=== PATIENT | male | born 1995 | race Caucasian/White ===

== ENCOUNTER 2024-12-08 15:41 | Emergency (ER) | payer OTHER, SELFPAY ==
[2024-12-08 15:48] VITALS: BP 133/68; PULSE 81; RESP 16; TEMP 37; O2SAT 100
--- NOTE | 2024-12-08 16:07 | ED.MALEGU ---
HPI - Male Genitourinary General Chief complaint: Urogenital-Male Stated complaint: STD Exposure Time Seen by Provider: 12/08/24 16:05 Source: patient, RN notes reviewed and old records reviewed Mode of arrival: ambulatory Limitations: no limitations History of Present Illness HPI Narrative: 29 year old male presents to [facility] care with report of STD exposure to Chlamydia and is here for testing and treatment. Patient reports that he has no symptoms of penis drainage, no burning with urination or any testicle pain or any lesion in perineal area. Patient reports significant other tested positive for Chlamydia. MD Complaint: possible STD exposure Associated symptoms: Reports other (none) Related Data Allergies Allergy/AdvReac Type Severity Reaction Status Date / Time Penicillins Allergy Unknown Anaphylactic Verified 03/10/19 09:56 Shock Review of Systems Review of Systems: CONSTITUTIONAL: Denies fever, chills, or sweats. CARDIOVASCULAR: Denies chest pain, palpitations, or edema. RESPIRATORY: Denies cough or dyspnea. GASTROINTESTINAL: Denies abdominal pain, nausea, vomiting, or diarrhea. GENITOURINARY: Reports no dysuria, frequency, urgency. Denies flank pain or hematuria. Denies any burning or pain with urination or any testicle pain or any penis discharge or testicle pain SKIN: Denies rash or itching. MUSCULOSKELETAL: Denies back pain or myalgia. Denies CVA tenderness NEUROLOGIC: Denies headache All systems reviewed & are unremarkable except as noted in HPI and below PMFSH Past Medical History Medical History (Updated 12/11/24 @ 09:34 by Jeanne Turner NP) Back pain Social History Social History (Updated 12/11/24 @ 09:34 by Jeanne Turner NP) Smoking status: Current every day smoker Tobacco type: cigarettes Alcohol intake: current Alcohol use details: social Substance use type: does not use Living arrangements: with family Gender identity (if verbalized by the patient): Male Comments At time of signature, agree with nursing past medical, surgical, social and family history. There is no relevant family history pertinent to the presenting complaint Exam Narrative: GENERAL: Well-appearing, well-nourished, and in no acute distress.no HEAD: Normocephalic, atraumatic. NECK: Supple.no lymphadenopathy CHEST: Clear to auscultation. No respiratory distress. SAO2 100% on room air HEART: Regular rate and rhythm. No murmur heard. Normal peripheral pulses. ABDOMEN: Soft, nontender, nondistended, normal active bowel sounds. No CVA tenderness. Patient denies any penis drainage or any burning with urination, denies any testicle pain or any perineal lesions EXTREMITIES: Normal range of motion. No edema. SKIN: Warm, dry, no rash. NEURO: No focal deficits. Alert and oriented x3. Course Course Emergency Course: Patient is aware of diagnosis, understands and agrees to treatment plan.? Anticipatory guidance given.? Patient agrees to follow-up as directed and is aware of reasons to seek care at the emergency department. Portions of this record may have been created with voice recognition software Level of Care: Express Care Visit Vital Signs Vital signs: Vital Signs Temperature 37.0 C 12/08/24 15:48 Pulse Rate 81 12/08/24 15:48 Respiratory Rate 16 12/08/24 15:48 Blood Pressure 133/68 12/08/24 15:48 Pulse Oximetry 100 12/08/24 15:48 Oxygen Delivery Room Air 12/08/24 15:48 Temperature 37.0 C 12/08/24 15:48 Pulse Rate 81 12/08/24 15:48 Respiratory Rate 16 12/08/24 15:48 Blood Pressure 133/68 12/08/24 15:48 Pulse Oximetry 100 12/08/24 15:48 Oxygen Delivery Room Air 12/08/24 15:48 MDM - Male Genitourinary MDM Narrative Medical decision making narrative: Patient notified of test results of + chlamydia with other tested STDs negative on 12/09/2024 Differential Diagnosis Differential diagnosis: Likely urethritis and other (exposure to STD, chlamydia exposure) Medical Records Attestation: I reviewed the patient's medical records. Lab Data Attestation: I reviewed the patient's lab results. Lab results narrative: urine for STD sent GC Chlamydia, and Trichomonas Labs: Lab Results 12/08/24 Range/Units 16:15 C. trachomatis (PCR) Detected A (NOT DETECTE) N. gonorrhoeae (PCR) Not detected (NOT DETECTE) T. vaginalis (PCR) Not detected (NOT DETECTE) reviewed Critical Care Time Critical Care Time Critical Care Time: No Discharge Plan Discharge Clinical Impression: Exposure to sexually transmitted disease (STD) Patient Disposition: Home, Self-Care Condition: Stable Instructions: Antibiotic Form, Chlamydia (ED) Additional Instructions: Take all doses of prescribed antibiotic for 1 week duration Must abstain from having intercourse for 2 weeks after completion of antibiotic If he need more comprehensive testing done [facility] If your symptoms persist, change or worsen significantly before you can contact your personal physician then please, without delay, go to the emergency department for further evaluation. Follow-up with PCP in 7-10 days or sooner if needed Follow up with PCP soon in regards to your blood pressure which is elevated above threshold for referral. Blood pressure above 120/80 may indicate pre-hypertension. Blood pressure 133/68 you will be notified of results Patient Language: Maori Prescriptions: New doxycycline hyclate 100 mg tablet 100 mg PO BID Qty: 14 0RF Rx Instructions: take with food Follow-up/Referrals: PHYSICIAN,METAL CLEANER [Primary Care Provider] - Time of Disposition: 16:20 Quality Felt Coma Scale Eyes: Open Verbal: Oriented and Alert Motor: Follows Commands Felt Coma Total Score: 15
--- OUTSIDE RECORDS SUMMARY | 2024-12-08 18:03 | XMS_ITS | Data Portability ---
Author Organization [facility] Address [address] [place] [address] Care Team Providers Care Information Assurance Manager Name Role Phone NAVA, PAULINE Primary Care Provider Assessment No assessment recorded. Plan of Treatment Reminders Order Date Submit Date Provider Last Modified By Organization Details Last Modified Time Details Appointments None recorded . Lab TSH, ultra-se nsitive, serum 2023 024 [facility], [address], [place], [address], 4 10:36:51 CMP, serum or plasma 2023 024 [facility], [address], [place], [address], 4 10:36:49 lipid panel, serum 2023 024 [facility], [address], [place], [address], 4 10:36:48 CBC 2023 024 [facility], [address], [place], [address], 4 10:36:52 Referral None recorded . Procedures None recorded . Surgeries None recorded . Imaging None recorded . Medication Orders Tylenol- Codeine #3 300 mg-30 mg tablet 2019 020 [id number], [address], [place], [place], [id number], 4 14:08:28 Bactrim DS 800 mg-160 mg tablet 2019 020 [id number], [address], [place], [place], [id number], 14:08:27 Patient TargetsNo targets recorded. Patient Instructions Encounter Date Encounter Id Patient Instructions Last Modified By Organization Details Last Modified Time 12/16/2019 [id number] skin abscess: care instructions jnanney Not available 12/16/2019 14:27:27 12/27/2019 [id number] Skin Cyst: Care Instructions jnanney Not available 12/27/2019 17:29:46 02/23/2024 [id number] Learning About Benefits of Quitting Smoking Not available 02/23/2024 14:37:53 stopping smokeless tobacco use: care instructions [facility] Not available 02/23/2024 14:37:53 Increase intake of fresh fruits, and vegetables. Avoid packaged foods and fast foods. Follow a low salt diet, drink at least 8-10 8oz glasses of water a day, exercise most days of the week. Take all medications as prescribed. Keep appointments with PCP and all specialists. Not available 03/01/2024 10:46:47 follow up as needed, yearly to keep established with provider I have reviewed the provider's note and I agree with the documented assessment and plan. HLF [email or web address] Not available 03/01/2024 23:41:20 Reason for Referral None Reported. Results Created Date Observation Date Name Description Value Unit Range Abnormal Flag Note LastModifiedBy Organization Detail LastModifiedTime 02/23/2002/24/2024 LIPID PANEL cholesterol, total 211 mg/dL 100-19 9 above high normal Not Available [facility] ([facility]) [address] [facility] [address], [place], [address], 02/24/2024 10:36:47 02/23/20 24 02/24/2024 LIPID PANEL triglyceride s 37 mg/dL 0-149 Not Available [facility] ([facility]) [address], [place], [address], 02/24/2024 10:36:47 02/23/20 24 02/24/2024 LIPID PANEL HDL cholesterol 102 mg/dL >39 Not Available [facility] ([facility]) [address] [place], [address], 02/24/2024 10:36:47 02/23/20 24 02/24/2024 LIPID PANEL VLDL cholesterol rocio 7 mg/dL 5-40 Not Available [facility] ([facility]) [address] [place], [address], 02/24/2024 10:36:47 02/23/20 24 02/24/2024 LIPID PANEL LDL chol calc ([facility]) 102 mg/dL 0-99 above high normal Not Available [facility] ([facility]) [address] [place], [address], 02/24/2024 10:36:47 02/23/20 24 02/24/2024 COMP. METAB OLIC PANEL (14) glucose 84 mg/dL 70-99 Not Available [facility] ([facility]) [address] [place], [address], 02/24/2024 10:36:49 02/23/20 24 02/24/2024 COMP. METAB OLIC PANEL (14) BUN 12 mg/dL 6-20 Not Available [facility] ([facility]) [address] [place], [address], 02/24/2024 10:36:49 02/23/20 24 02/24/2024 COMP. METAB OLIC PANEL (14) creatinine 0.88 mg/dL 0.76-1 .27 Not Available [facility] ([facility]) [address] [place], [address], 02/24/2024 10:36:49 02/23/20 24 02/24/2024 COMP. METAB OLIC PANEL (14) eGFR 119 mL/mi n/1.7 3 >59 Not Available [facility] ([facility] [facility]) [address], [place], [address], 02/24/2024 10:36:49 02/23/20 24 02/24/2024 COMP. METAB OLIC PANEL (14) BUN/creatini ne ratio 14 9-20 Not Available [facility] ([facility]) [address], [place], [address], 02/24/2024 10:36:49 02/23/20 24 02/24/2024 COMP. METAB OLIC PANEL (14) sodium 142 mmol/ L 134-14 4 Not Available [facility] ([place] [facility]) [address], [place], [address], 02/24/2024 10:36:49 02/23/20 24 02/24/2024 COMP. METAB OLIC PANEL (14) potassium 4.1 mmol/ L 3.5-5. 2 Not Available [facility] ([place] [facility]) [address], [place], [address], 02/24/2024 10:36:49 02/23/20 24 02/24/2024 COMP. METAB OLIC PANEL (14) chloride 103 mmol/ L 96-106 Not Available [facility] ([facility]) [address], [place], [address], 02/24/2024 10:36:49 02/23/20 24 02/24/2024 COMP. METAB OLIC PANEL (14) carbon dioxide, total 26 mmol/ L 20-29 Not Available [facility] ([place] [facility]) [address], [place], [address], 02/24/2024 10:36:49 02/23/20 24 02/24/2024 COMP. METAB OLIC PANEL (14) calcium 9.7 mg/dL 8.7-10 .2 Not Available [facility] ([place] [facility]) [address], [place], [address], 02/24/2024 10:36:49 02/23/20 24 02/24/2024 COMP. METAB OLIC PANEL (14) protein, total 7.1 g/dL 6.0-8. 5 Not Available [facility] ([facility]) [address], [place], [address], 02/24/2024 10:36:49 02/23/20 24 02/24/2024 COMP. METAB OLIC PANEL (14) albumin 5.0 g/dL 4.3-5. 2 Not Available [facility] ([facility]) [address], [place], [address], 02/24/2024 10:36:49 02/23/20 24 02/24/2024 COMP. METAB OLIC PANEL (14) globulin, total 2.1 g/dL 1.5-4. 5 Not Available [facility] ([facility]) [address], [place], [address], 02/24/2024 10:36:49 02/23/20 24 02/24/2024 COMP. METAB OLIC PANEL (14) A/G ratio 2.4 1.2-2. 2 above high normal Not Available [facility] ([facility]) [address], [place], [address], 02/24/2024 10:36:49 02/23/20 24 02/24/2024 COMP. METAB OLIC PANEL (14) bilirubin, total 0.5 mg/dL 0.0-1. 2 Not Available [facility] ([facility]) [address], [place], [address], 02/24/2024 10:36:49 02/23/20 24 02/24/2024 COMP. METAB OLIC PANEL (14) alkaline phosphatase 82 IU/L 44-121 Not Available [facility] ([facility]) [address], [place], [address], 02/24/2024 10:36:49 02/23/20 24 02/24/2024 COMP. METAB OLIC PANEL (14) AST (SGOT) 41 IU/L 0-40 above high normal Not Available [facility] ([facility]) [address] [place], [address], 02/24/2024 10:36:49 02/23/20 24 02/24/2024 COMP. METAB OLIC PANEL (14) ALT (SGPT) 25 IU/L 0-44 Not Available [facility] ([facility]) [address], [place], [address], 02/24/2024 10:36:49 02/23/20 24 02/24/2024 TSH RFX ON ABNOR MAL TO FREE T4 TSH 2.060 uIU/m L 0.450- 4.500 Not Available [facility] ([facility]) [address], [place], [address], 02/24/2024 10:36:50 02/23/20 24 02/24/2024 CBC, PLATE LET, NO DIFFE RENTI AL WBC 7.1 x10e3 /uL 3.4-10 .8 Not Available [facility] ([facility]) [address] [place], [address], 02/24/2024 10:36:52 02/23/20 24 02/24/2024 CBC, PLATE LET, NO DIFFE RENTI AL RBC 4.45 x10e6 /uL 4.14-5 .80 Not Available [facility] ([facility]) [address] [place], [address], 02/24/2024 10:36:52 02/23/20 24 02/24/2024 CBC, PLATE LET, NO DIFFE RENTI AL hemoglobin 13.2 g/dL 13.0-1 7.7 Not Available [facility] ([facility]) [address] [place], [address], 02/24/2024 10:36:52 02/23/20 24 02/24/2024 CBC, PLATE LET, NO DIFFE RENTI AL hematocrit 39.8 % 37.5-5 1.0 Not Available [facility] ([facility]) [address] [place], [address], 02/24/2024 10:36:52 02/23/20 24 02/24/2024 CBC, PLATE LET, NO DIFFE RENTI AL MCV 89 fL 79-97 Not Available [facility] ([facility]) [address] [place], [address], 02/24/2024 10:36:52 02/23/2002/24/2024 CBC, PLATE LET, NO DIFFE RENTI AL MCH 29.7 pg 26.6-3 3.0 Not Available [facility] ([facility]) [address] [place], [address], 02/24/2024 10:36:52 02/23/2002/24/2024 CBC, PLATE LET, NO DIFFE RENTI AL MCHC 33.2 g/dL 31.5-3 5.7 Not Available [facility] ([facility]) [address] [place], [address], 02/24/2024 10:36:52 02/23/20 24 02/24/2024 CBC, PLATE LET, NO DIFFE RENTI AL RDW 12.7 % 11.6-1 5.4 Not Available [facility] ([facility]) [address] [place], [address], 02/24/2024 10:36:52 02/23/2002/24/2024 CBC, PLATE LET, NO DIFFE RENTI AL platelets 236 x10e3 /uL 150-45 0 Not Available [facility] ([facility]) [address] [place], [address], 02/24/2024 10:36:52 Result Notes None recorded. Problems No Known Problems Medical Equipment None Reported. Allergies Allergen ID Allergen Name Allergen Category Reaction Reaction Severity Criticality Documentation Date Start Date Code Code System Note Provider Name and Address Organization Details Recorded Time 672078 Product containin g penicilli n (product) medicatio n Not available Not available Not available 12/16/2019 11675 8001 SNOMED Not Available Not Available Not Available Medications Name Sig Start Date Stop Date Status Note LastModified by Organization Details LastModified Time Tylenol-Codei ne #3 300 mg-30 mg tablet Take 1 tablet every 6 hours by oral route for 10 days. 02/22 completed Not Available Not Available Not Available Bactrim DS 800 mg-160 mg tablet Take 1 tablet every 12 hours by oral route for 10 days. 02/22 completed Not Available Not Available Not Available azithromycin 500 mg tablet TAKE 1 TABLET BY MOUTH EVERY DAY FOR 5 DAYS 02/22 completed Not Available Not Available Not Available Vitals Date Recorded Body weight Body height Body mass index (BMI) Oxygen saturation Oxygen saturation in Arterial blood by Pulse oximetry Heart rate Systolic blood pressure Diastolic blood pressure Provider Name and Address Organization Details Last Updated DateTime 0 34649.8 5 g 177.8 cm 21.7 kg/m2 97 % 97 % 83 /min 126 mm[Hg] 74 mm[Hg] Amara Donaldson [place] - [facility] 0 14:07:52 Date Recorded Body height Body mass index (BMI) Body weight Oxygen saturation Oxygen saturation in Arterial blood by Pulse oximetry Systolic blood pressure Diastolic blood pressure Provider Name and Address Organization Details Last Updated DateTime 0 177.8 cm 14.1 kg/m2 23418.0 5 g 90 % 90 % 130 mm[Hg] 74 mm[Hg] Amara Donaldson MA [place] - [facility] 0 17:00:06 Date Recorded Body height Body mass index (BMI) Body weight Oxygen saturation Oxygen saturation in Arterial blood by Pulse oximetry Heart rate Respiratory rate Body temperature Systolic blood pressure Diastolic blood pressure Provider Name and Address Organization Details Last Updated DateTime 4 177.8 cm 20.7 kg/m2 24218.3 g 99 % 99 % 82 /min 16 /min 98.9 [degF] 120 mm[Hg] 78 mm[Hg] WILDER De León [place] [facility] 14:12:35 Social History Question Answer Notes LastModified by Organization Details LastModified Time Tobacco Smoking Status Former Smoker quit 12/2020 WILDER [place] null, [place] - [facility] 02/23/2024 14:10:05 What Is Your Level Of Alcohol Consumption? Heavy 6 Days Weekly Information not available 02/23/2024 Are You Blind Or Do You Have Difficulty Seeing? No Information not available 02/23/2024 What Is Your Level Of Caffeine Consumption? Moderate Information not available 02/23/2024 In The 14 Days Before Symptom Onset, Have You Had Close Contact With A Laboratory-confi rmed COVID-19 While That Case Was Ill? No Information not available 02/23/2024 In The 14 Days Before Symptom Onset, Have You Had Close Contact With A Person Who Is Under Investigation For COVID-19 While That Person Was Ill? No Information not available 02/23/2024 Have You Been To An Area Known To Be High Risk For COVID-19? No Information not available 02/23/2024 Are You Currently Employed? Yes Information not available 02/23/2024 Are You Deaf Or Do You Have Serious Difficulty Hearing? No Information not available 02/23/2024 What Type Of Diet Are You Following? REGULAR Information not available 02/23/2024 Do You Or Have You Ever Used E-cigarettes Or Vape? Current User Of Electronic Cigarettes Information not available 02/23/2024 What Is Your Occupation? [employer] Information not available 02/23/2024 Are There Any Guns Present In Your Home? No Information not available 02/23/2024 What Was The Date Of Your Most Recent Tobacco Screening? 02/23/2024 Information not available 02/23/2024 How Many Children Do You Have? 2 Information not available 02/23/2024 What Is Your Relationship Status? Single Information not available 02/23/2024 Do You Use Your Seat Belt Or Car Seat Routinely? Yes Information not available 02/23/2024 Do You Have Smoke And Carbon Monoxide Detectors In Your Home? Yes Information not available 02/23/2024 Are You Passively Exposed To Smoke? Yes Information not available 02/23/2024 Do You Or Have You Ever Used Smokeless Tobacco? Never Used Smokeless Tobacco Information not available 02/23/2024 How Much Tobacco Do You Smoke? 1 PPD Information not available 12/16/2019 Do You Feel Stressed (tense, Restless, Nervous, Or Anxious, Or Unable To Sleep At Night)? IC2326-1 Information not available 02/23/2024 Do You Use Any Illicit Or Recreational Drugs? Yes Marijuanna Cocaine Hx Information not available 02/23/2024 Do You Use Sunscreen Routinely? Yes Information not available 02/23/2024 Has Tobacco Cessation Counseling Been Provided? No Information not available 02/23/2024 On What Date Was Tobacco Cessation Counseling Provided? 02/23/2024 Information not available 02/23/2024 How Many Years Have You Smoked Tobacco? 6 Information not available 12/16/2019 Do You Or Have You Ever Used Any Other Forms Of Tobacco Or Nicotine? Yes Information not available 02/23/2024 How Many Years Have You Used E-cigarettes Or Vape? 3 02/23/24 Information not available 02/23/2024 Sex: Male Functional Status Question Answer Note LastModified by Organizat ion Details LastModified Time Are you able to care for yourself? Yes Information not available 02/23/2024 What is your exercise level? Occasional Information not available 02/23/2024 Mental Status None recorded. Family History Relationship Description Onset Age of this Age Resolved Age Notes LastModified by Organization Details LastModified Time Mother Hypertensive disorder [email or web address] Not available 02/2020 14:06:03 Paternal Grandfather Myocardial infarction [email or web address] Not available 14:08:52 Medical History Condition Response Coronary Artery Disease N Other N Atrial Fibrillation N High Blood Pressure N Depression N COPD N Blood Clots N Anxiety Disorder N Muscle, Joint, or Bone Problems N Acid Reflux (GERD) N Cancer N Stroke N Headaches N Kidney or Bladder Problems N Eating Disorder N Skin Problems N Asthma N Allergies N Substance Abuse Y Hepatitis N ADHD N High Cholesterol N Liver Disease N Schizophrenia N Thyroid Problems N GI Problems N Anemia N Heart Attack (ND) N Diabetes N Seizures/Epilepsy N Osteoporosis N Heart Failure N Immunizations Vaccine Type Date Status Note Provider Nam e and Address Organization Details Recorded Time Tdap 01/26/2023 completed Pauline Nava APN, FNP-C Attn: [address] [place], [address], [facility] 02/23/2024 14:16:18 Tdap 03/27/2019 completed Pauline Nava APN, FNP-C Attn: [address] [place], [address], [facility] 02/23/2024 14:16:18 Past Encounters Encounter ID Performer Location Encounter Start Date Encounter Closed Date Diagnosis/Indication Diagnosis SNOMED-CT Code Diagnosis ICD10 Code Diagnosis Note [id number] Azeb Torres MA [facility] [address] [place] [address] 12/16/2019 13:57:28 12/16/2019 15:44:24 Abscess of skin and/or subcutaneous tissue 34794223 L02.91 [id number] [facility] [address] [place] [address] 12/17/2019 11:58:58 12/17/2019 13:48:59 Infection of sebaceous cyst 237484121 L72.3 [id number] Mickey Mandel PA-C [facility] [address] [place] [address] 12/27/2019 16:53:21 12/27/2019 17:32:47 Epidermoid cyst of skin 033694308 L72.3 [id number] MD Quan Tuttle (Adult Med) [address] [place] [address] 02/23/2024 13:51:37 03/04/2024 12:58:51 Adult health examination 044592251 Z00.01 Encouraged patient to eat well balanced meals, live active lifestyle and attend routine vision/den daniel apts. Electronic cigarette user 785618790 Z72.89 Smoking cessation encouraged . Disorder o f nasal septum 53189531 J34.9 concerned it runs more than normal, tried antihistam aristides, did not help, hx of coke use, would like options-víctor p seeing ENT here, will schedule-guillaume alfaroyrtec, astepro Lipoma of back 594232696 D17.1 squishy,1 cm rubbery nodule to upper back, non painfuldwp referral options Health Concerns Section Related Observation LastModified by Organization Detai ls LastModified Time None Recorded Concern Status LastModified by Organization Details LastModified Time None Recorded Advance Directives Directive None Recorded Payers Encounter Date Sequence Insurance Name Policy Number Policy Hutchins Covered Member ID Hutchins Member ID Guarantor Name 12/16/2019 1 [facility] (POS II) Stephen I Stamper [id number] Stephen Stamper 12/17/2019 1 [employer] (POS II) Stephen I Stamper [id number] Stephen Stamper 12/27/2019 1 [employer] (POS II) Stephen I Stamper [id number] Stephen Stamper 02/23/2024 1 [employer] (POS II) Stephen Brandt Stamper [id number] Stephen Stamper Notes Date Note Type Note Provider Name and Address Organization Details Recorded Time 12/16/2019 text/html 24 y/o male presents to establish care. Complains of growth on neck. First occurred about 10 years ago and was small. Started growing in size 1 week ago. Reports associated pain. No association with alcohol ingestion. Father had Hx of similar and was told it was cyst. No fever, nausea, vomiting, fatigue, weight loss, decreased appetite. Azeb Torres MA null, [place] - [facility] 12/17/2019 15:42:26 12/17/2019 text/html sebaceous cyst o n left neck Mickey Mandel PA-C Attn: [address] [facility], [place], [address], [facility] 12/17/2019 16:34:06 12/27/2019 text/html suture removal..healing well Mickey Mandel PA-C Attn: [address] [facility], [place], [address], [facility] 12/27/2019 17:30:26 02/23/2024 text/html last pcp was Eric and only saw him for cyst on chin. possible cyst on back- denies bothersome and moves. Possible deviated septum- states his nostrils done feel like they are open at the same- does have coke hx. quit doing drugs 5 years ago, cannabis started last year recreational use, not daily; blowing his nose often and clear drainage- claritin did not help Susan West MD Attn: [address] [facility], [place], [address], [facility] 03/01/2024 23:41:24
--- OUTSIDE RECORDS SUMMARY | 2024-12-08 18:03 | XMS_ITS | Clinical Summary ---
Author Organization [facility] Address [address] [place] [address] Phone Care Team Providers Care Supervisor Drapery Hanging Name Role Phone Provider, None Primary Care Provider Unavailabl e Allergies Active Allergy Reactions Criticality Noted Date Comments Penicillins Anaphylaxis 04/24/2016 Medications No known medications Immunizations Immunization Administration Dates Next Due TDAP Vaccine 01/26/2023 Social History Tobacco Use Types Packs/Day Years Used Date Smoking Tobacco: Every Day Cigarettes Alcohol Use Standard Drinks/Week Comments Yes 0 (1 standard drink = 0.6 oz pur e alcohol) weekly Sex and Gender Information Value Date Recorded Sex Assigned at Not on file Legal Sex Male 11:55 PM CDT Gender Identity Not on file Sexual Orientation Not on file Last Filed Vital Signs Vital Sign Reading Time Taken Comments Blood Pressure 128/84 01/26/2023 9:10 PM CDT Pulse 80 01/26/2023 9:10 PM CDT Temperature 37 C (98.6 F) 01/26/2023 8:03 PM CDT Respiratory Rate 18 01/26/2023 9:10 PM CDT Oxygen Saturation 99% 01/26/2023 9:10 PM CDT Inhaled Oxygen Concentration - - Weight 68 kg (150 lb) 01/26/2023 8:03 PM CDT Height 177.8 cm (5' 10 ) 01/26/2023 8:03 PM CDT Body Mass Index 21.52 01/26/2023 8:03 PM CDT Plan of Treatment Not on file Insurance [employer] [facility] Care Teams Supervisor Drapery Hanging Relationship Specialty Start Date End Date Provider, None [place] PCP - General 01/26/23
--- OUTSIDE RECORDS SUMMARY | 2024-12-08 18:04 | XMS_ITS | Patient Health Summary ---
Author Organization [facility] Address [address] [place] [address] Care Team Providers Care Business Insight And Analytics Manager Name Role Phone Katlyn Puente MD Primary Care Provider [phone] Note from [facility],non-owned Affiliates and Associated Physician Practices is amultiple site organization consisting of ambulatory clinics and hospital sitesin [place], [place], [place] and [place]. This disclosure is being madepursuant to the Care Everywhere program and may not contain all information available regarding this patient. Last updated 18.[facility] Allergies * Penicillins(Urticaria,Rash) -Low Criticality Medications * Be aware that medications may not be up to date on this document. Alwaysverify current medications with the patient. * diphenhydrAMINE (BENADRYL) 25 MG capsule Take 25 mg by mouth every 4 hours as needed. Indications: took 2 capsule for itching * famotidine (PEPCID) 20 MG tablet(Started 10/23/2010) Take 1 Tab by mouth 2 times daily. 11 refills left Social History Tobacco Use Types Packs/Day Years Used Date Smoking Tobacco: Every Day Cigarettes 3 1 Comments:patient and Mother Alcohol Use Standard Drinks/Week Comments No 0 (1 standard drink = 0.6 oz pur e alcohol) Sex and Gender Information Value Date Recorded Sex Assigned at Not on file Gender Identity Not on file Sexual Orientation Not on file Last Filed Vital Signs Vital Sign Reading Time Taken Comments Blood Pressure 90/64 10/23/2010 3:09 PM SAUSAGE MEAT TRIMMER Pulse 80 06/20/2010 4:50 PM CDT Temperature 36.7 C (98 F) 06/20/2010 4:24 PM CDT Respiratory Rate 20 06/20/2010 4:50 PM CDT Oxygen Saturation 99% 06/20/2010 3:55 PM CDT Inhaled Oxygen Concentration - - Weight 56.5 kg (124 lb 9.6 oz) 10/23/2010 3:09 P M SAUSAGE MEAT TRIMMER Height 173.7 cm (5' 8.39 ) 10/23/2010 3:09 PM CS T Body Mass Index 18.73 10/23/2010 3:09 PM SAUSAGE MEAT TRIMMER Procedures * PATHOLOGY/CYTOLOGY REPORT ORDER(Performed 06/22/2010) * GROSS + MICRO EXAM(Performed 06/20/2010) * HELICOBACTER PYLORI UREASE(Performed 06/20/2010) * CULTURE STREP GROUP A(Performed 06/20/2010) * STREP A SCREEN DIRECT(Performed 06/20/2010) Performed for Rash and Other Nonspecific Skin Eruption * URINALYSIS REFLEX TO MICROSCOPIC NO CULTURE(Performed 05/29/2010) Performed for Abdominal Pain, Unspecified Site * DIFFERENTIAL MANUAL(Performed 05/29/2010) * LIPASE BLOOD(Performed 05/29/2010) Performed for Abdominal Pain, Unspecified Site * COMPREHENSIVE METABOLIC PANEL(Performed 05/29/2010) Performed for Abdominal Pain, Unspecified Site * C-REACTIVE PROTEIN(Performed 05/29/2010) Performed for Abdominal Pain, Unspecified Site * CBC W AUTO DIFFERENTIAL(Performed 05/29/2010) Performed for Abdominal Pain, Unspecified Site Results * PATHOLOGY/CYTOLOGY REPORT ORDER (06/22/2010 8:48 AM CDT) Narrative Procedure Note Document, Scanned - 06/22/2010 4:23 AM CDT Scanned Document LAB - PATHOLOGY/CYTO LOGY ORDERABLES * GROSS + MICRO EXAM (06/20/2010 3:22 PM CDT) [facility] Clinical History [facility] Comment: The patient is a 15-year-old boy with abdominal pain who underwent upper endoscopy. The endoscopic finding was mild esophagitis. Gross Description [facility] Comment: The specimens are received fixed in formalin in three containers for gross and microscopic examination. All containers are labeled with the patient's name, Stephen Cespedes. Specimen A, duodenum, consists of two soft, yellow-ricks tissue fragments, 8 mm and 10 mm in greatest dimension. The specimen is submitted in toto as A1. Specimen B, stomach, consists of three soft, yellow-ricks tissue fragments, 3 mm to 5 mm in greatest dimension. The specimen is submitted in toto as B1. Specimen C, esophagus, consists of four 5 mm soft, lewis-pink tissue fragments, submitted in toto as C1. (CT/nab) Microscopic Examination [facility] Comment: A) 3 H+E; B) 3 H+E; C) 3 H+E Sections from the duodenum show fragments of small intestinal mucosa with long thin villi and the usual prominence of inflammatory cells in the lamina propria. No parasites, granulomas, ischemic features or malignant features are evident. Sections from the stomach show fragments of gastric mucosa with intact architecture and the usual complement of inflammatory cells. No Helicobacter pylori are demonstrated. Sections from the esophagus show strips of stratified squamous mucosa with minimal elongation of vascular papillae and mild basal spongiosis. Occasional eosinophils and lymphocytes are seen in the epithelium (up to 2/high powered field). There is no metaplasia. (MT/nab) Diagnosis [facility] Comment: DIAGNOSIS: A) DUODENUM, MUCOSAL BIOPSY: -MINIMAL HISTOLOGIC ALTERATION. B) STOMACH, MUCOSAL BIOPSY: -MINIMAL HISTOLOGIC ALTERATION. -NO HELICOBACTER PYLORI DEMOSTRATED. C) ESOPHAGUS, MUCOSAL BIOPSY: -SUBACUTE AND CHRONIC ESOPHAGITIS, MILD (CONSISTENT WITH REFLUX ESOPHAGITIS). This case has been personally reviewed and interpreted by the attending (teaching) pathologist. Architectural Engineering Teacher JADYN PAINTING, [facility] Pathologist Yassine solomon M.D. [facility] Electronically Signed By YASSINE Solomon [facility] PART OF DUODENUM / Unknown 06/20/2010 3:22 PM CDT 06/21/2010 7:10 AM CDT Ron Gutierrez MD LAB - PATHOLOGY/CYTO LOGY ORDERABLES Performing Organization Address City/State/[facility] Co de Phone Number [facility] [address] [place] [address] * HELICOBACTER PYLORI UREASE (06/20/2010 3:22 PM CDT) Report [facility] Comment: Final - CULTURE Negative Rapid Urease Test for Helicobacter pylori. GASTRIC ANTRAL BIOPSY SPECIMEN / Unknown 06/20/2010 3:22 PM CDT 06/20/2010 3:39 PM CDT Ron Gutierrez MD LAB - MICROBIOLOGY O RDERABLES Performing Organization Address [facility] Co de Phone Number [facility] [address] [place] [address] * STREP A SCREEN DIRECT (06/20/2010 1:30 PM CDT) Strep A Rapid Negative Neg Grp A Beta Strep [facility] ENTIRE THROAT (SURFACE REGION OF NECK) / Unknown 06/20/2010 1:30 PM CDT 06/20/2010 1:40 PM CDT Ron Gutierrez MD LAB - MICROBIOLOGY O RDERABLES Performing Organization Address [facility] Co de Phone Number [facility] [address] [place] [address] * CULTURE STREP GROUP A (06/20/2010 1:30 PM CDT) Report [facility] Comment: Final - CULTURE Negative for Group A Beta Strep. ENTIRE THROAT (SURFACE REGION OF NECK) / Unknown 06/20/2010 1:30 PM CDT 06/20/2010 2:11 PM CDT Ron Gutierrez MD LAB - MICROBIOLOGY O RDERABLES Performing Organization Address [facility] de Phone Number [facility] [address] [place] [phone] * URINALYSIS ROUTINE AUTO (05/29/2010 3:41 PM CDT) Color UA YELLOW [facility] Character UA CLEAR [facility] Specific [place] UA <=1.005 1.003 - 1.030 [facility] pH UA 7.0 5.0 - 8.0 [facility] Protein UA NEGATIVE Negative [facility] Glucose UA NEGATIVE Negative gm/dl [facility] Ketone UA NEGATIVE Negative [facility] Blood UA NEGATIVE Negative [facility] Bilirubin UA NEGATIVE Negative [facility] Reducing Substances UA NEGATIVE Negative % [facility] Bacteria UA Trace [facility] Leukocyte UA NEGATIVE [facility] Nitrite UA NEGATIVE [facility] Urobilinogen UA 0.2 <=1.0 EU/dl [facility] URINE SPECIMEN OBTAINED BY CLEAN CATCH PROCEDURE / Unknown 05/29/2010 3:41 PM CDT 05/29/2010 3:44 PM CDT Ron Gutierrez MD LAB - URINALYSIS ORD ERABLES Performing Organization Address [facility] Co de Phone Number [facility] [address] [place] [phone] * (ABNORMAL) C-REACTIVE PROTEIN (05/29/2010 3:33 PM CDT) Pathologist [facility] [place] C-Reactive Protein 3.7(H) <1.0 mg/dl mg/dl [facility] BLOOD SPECIMEN / Unknown 05/29/2010 3:33 PM CDT 05/29/2010 3:45 PM CDT Ron Gutierrez MD LAB - CHEMISTRY ORDE RABALVAREZ Performing Organization Address [facility] Co de Phone Number [facility] [address] [place] [phone] * (ABNORMAL) DIFFERENTIAL MANUAL (05/29/2010 3:33 PM CDT) Pathologist [facility] [place] Comment Manual Diff Done [facility] Neutrophils % Manual 72 31 - 78 % [facility] Lymphocytes % Manual 12(L) 13 - 54 % [facility] Monocytes % Manual 8 4 - 13 % [facility] Eosinophils % Manual 5 0 - 8 % [facility] Atypical Lymphocyte % Manual 3 % [facility] RBC Morphology Slight Anisocytosis, Poikylocytosis, Few Ovalocytes [facility] WBC Morph Slight Vacuolation [facility] BLOOD SPECIMEN / Unknown 05/29/2010 3:33 PM CDT 05/29/2010 4:12 PM CDT Ron Gutierrez MD LAB - HEMATOLOGY ORD ERABLES Performing Organization Address [facility] Co de Phone Number [facility] [address] [place] [phone] * CBC W AUTO DIFFERENTIAL (05/29/2010 3:33 PM CDT) Pathologist [facility] [place] WBC 9.98 4.5 - 11.0 K/cumm [facility] RBC 4.70 4.50 - 5.30 mill/cumm [facility] Hemoglobin 13.3 13.0 - 16.0 gm/dl [facility] Hematocrit 37.9 37.0 - 49.0 % [facility] MCV 80.6 78.0 - 98.0 cu microns [facility] MCH 28.3 25.0 - 35.0 uug [facility] MCHC 35.1 31.0 - 37.0 % [facility] RDW 12.8 % [facility] MPV 9.8 fl [facility] Platelet Count 321 100 - 400 K/cumm [facility] Comment Manual Diff Done [facility] BLOOD SPECIMEN / Unknown 05/29/2010 3:33 PM CDT 05/29/2010 3:45 PM CDT Ron Gutierrez MD LAB - HEMATOLOGY ORD ABEBA Performing Organization Address City/[facility] Co de Phone Number [facility] [address] [place] [address] * (ABNORMAL) COMPREHENSIVE METABOLIC PANEL (05/29/2010 3:33 PM CDT) Sodium 144 137 - 145 mmol/L [facility] Potassium 3.7 3.5 - 5.1 mmol/L [facility] Chloride 103 98 - 107 mmol/L [facility] CO2 29.7 22 - 30 mmol/L [facility] Glucose 93 70 - 106 mg/dl [facility] BUN 7.6(L) 8 - 21 mg/dl [facility] Calcium 9.0 8.9 - 10.7 mg/dl [facility] Bilirubin Total 0.3(L) 0.6 - 1.4 mg/dl [facility] Protein Total 7.9 6.3 - 8.6 gm/dl [facility] Albumin 4.4 3.7 - 5.6 gm/dl [facility] ALT 22 10 - 40 Units/L [facility] AST 48(H) 10 - 45 Units/L [facility] Alkaline Phosphatase 121 65 - 260 Units/L [facility] Creatinine 0.73 0.50 - 1.06 mg/dl [facility] BLOOD SPECIMEN / Unknown 05/29/2010 3:33 PM CDT 05/29/2010 3:45 PM CDT Ron Gutierrez MD LAB - CHEMISTRY ORDE JUANY [facility] [address] [place] [address] * LIPASE BLOOD (05/29/2010 3:33 PM CDT) Lipase 57 23 - 300 Units/L [facility] BLOOD SPECIMEN / Unknown 05/29/2010 3:33 PM CDT 05/29/2010 3:45 PM CDT Ron Gutierrez MD LAB - CHEMISTRY OLIVIAE JUANY Performing Organization Address City/[facility] Co de Phone Number [facility] [address] [place] [address] Care Teams Business Insight And Analytics Manager Relationship Specialty Start Date End Date Katlyn Puente MD [address] [place] [address] [phone] PCP - General 05/29/10
--- OUTSIDE RECORDS SUMMARY | 2024-12-08 18:04 | XMS_ITS | Referral Summary ---
Author Organization [facility] Address [address] [place] [address] Care Team Providers Care Computer Customer Support Specialist Name Role Phone Katlyn Puente MD Primary Care Provider [phone] Source Comments [facility],non-owned Affiliates and Associated Physician Practices is amultiple site organization consisting of ambulatory clinics and hospital sitesin [place], [place], [place] and [place]. This disclosure is being madepursuant to the Care Everywhere program and may not contain all information available regarding this patient. Last updated 18.[facility] Allergies Active Allergy Reactions Criticality Noted Date Comments Penicillins Urticaria,Rash Low 05/29/2010 Medications * Be aware that medications may not be up to date on this document. Alwaysverify current medications with the patient. Medication Sig Dispensed Refills Start Date End Date Status diphenhydrAMINE (BENADRYL) 25 MG capsuleIndications:too k 2 capsule for itching Take 25 mg by mouth every 4 hours as needed. Indications: took 2 capsule for itching Active famotidine (PEPCID) 20 MG tabletIndications:Abdo selene pain, unspecified site Take 1 Tab by mouth 2 times daily. 60 Tab 11 10/23/2010 Active Social History Tobacco Use Types Packs/Day Years [...] Comments Blood Pressure 90/64 10/23/2010 3:09 PM SPA DIRECTOR Pulse 80 06/20/2010 4:50 PM CDT Temperature 36.7 C (98 F) 06/20/2010 4:24 PM CDT Respiratory Rate 20 06/20/2010 4:50 PM CDT Oxygen Saturation 99% 06/20/2010 3:55 PM CDT Inhaled Oxygen Concentration - - Weight 56.5 kg (124 lb 9.6 oz) 10/23/2010 3:09 P M SPA DIRECTOR Height 173.7 cm (5' 8.39 ) 10/23/2010 3:09 PM CS T Body Mass Index 18.73 10/23/2010 3:09 PM SPA DIRECTOR Plan of Treatment Not on file Care Teams Computer Customer Support Specialist Relationship Specialty Start Date End Date Katlyn Puente MD [address] [place] [phone] PCP - General 05/29/10
--- OUTSIDE RECORDS SUMMARY | 2024-12-08 18:04 | XMS_ITS | Clinical Summary ---
Author Organization [facility] Address [address] [place] [address] Care Team Providers Care Azure Architect Name Role Phone Katlyn Puente MD Primary Care Provider [phone] Source Comments [facility],non-owned Affiliates and Associated Physician Practices is amultiple site organization consisting of ambulatory clinics and hospital sitesin [place], [place], [place] and [place]. This disclosure is being madepursuant to the Care Everywhere program and may not contain all information available regarding this patient. Last updated 18.[facility] Allergies Active Allergy Reactions Criticality Noted Date [...] times daily. 60 Tab 11 10/23/2010 Active Family History Medical History Relation Name Comments Anesthesia Reaction Mother severes po nausea and vomiting Anesthesia Reaction Paternal Grandmother PONV Relation Name Status Comments Brother Alive Mother Alive Other Dad Alive Paternal Grandmother Social History Tobacco Use Types Packs/Day Years [...] Comments Blood Pressure 90/64 10/23/2010 3:09 PM BIOINFORMATICS TECHNICIAN Pulse 80 06/20/2010 4:50 PM CDT Temperature 36.7 C (98 F) 06/20/2010 4:24 PM CDT Respiratory Rate 20 06/20/2010 4:50 PM CDT Oxygen Saturation 99% 06/20/2010 3:55 PM CDT Inhaled Oxygen Concentration - - Weight 56.5 kg (124 lb 9.6 oz) 10/23/2010 3:09 P M BIOINFORMATICS TECHNICIAN Height 173.7 cm (5' 8.39 ) 10/23/2010 3:09 PM CS T Body Mass Index 18.73 10/23/2010 3:09 PM BIOINFORMATICS TECHNICIAN Plan of Treatment Health Maintenance Due Date Last Done Comments HIV SCREENING 2008 HEPATITIS C SCREENING 04/08/2011 DTAP/TDAP/TD VACCINES (1 - Tdap) 2012 HEPATITIS B VACCINE (1 of 3 - 19+ 3-dose series) 2012 PNEUMOCOCCAL VACCINE (1 of 2 - PCV) 2012 COVID-19 VACCINE (1 - 2023-2 5 season) 2024 INFLUENZA VACCINE (#1) 2024 DEPRESSION SCREENING 10/13/2024 ZOSTER VACCINE (1 of 2) 2043 HIB VACCINE Aged Out No longer eligi ble based on patient's age to complete this topic HPV VACCINE Aged Out No longer eligi ble based on patient's age to complete this topic MENINGOCOCCAL (Group B) VACCINE Aged Out No longer eligible based on patient's age to complete this topic MENINGOCOCCAL VACCINE Aged Out No blade yovany eligible based on patient's age to complete this topic Care Teams Azure Architect Relationship Specialty Start Date End Date Katlyn Puente MD [address] [place] [address] Dr [address] [place] [phone] PCP - General 05/29/10
[2024-12-08 21:04] LABS: Trichomonas Vag PCR NOT DETECTED (NOT DETECTE)
[2024-12-08 21:27] LABS: Chlamydia trachomatis DETECTED (NOT DETECTE); Neisseria gonorrhoeae PCR NOT DETECTED (NOT DETECTE)
== END 2024-12-08 16:24 | disposition home or self-care (01) ==
PROVIDERS: Emergency Provider Registered Nurse
DX: Z20.2 Contact with and (suspected) exposure to infections with a predominantly sexual mode of transmission (principal); F17.210 Nicotine dependence, cigarettes, uncomplicated
CPT/HCPCS: 87491; 87591; 87661; 99213; G0463

== ENCOUNTER 2025-06-21 17:34 | Outpatient (CLI) | payer OTHER, SELFPAY ==
--- NOTE | ~2025-06-21 | XR_ITS ---
EXAMINATION: XR knee RT 3V, 06/21/2025 17:44 CDT HISTORY: INCREASING KNEE PAIN AND LIMITED ROM; NO INJURY COMPARISON: No comparisons available. Findings: No acute fracture or malalignment. No significant degenerative changes. Soft tissues unremarkable. Impression: No acute fracture or malalignment. Reviewed, dictated and finalized at location A. Impression: No acute fracture or malalignment.
--- OUTSIDE RECORDS SUMMARY | 2025-06-21 17:37 | XMS_ITS | Clinical Summary ---
Author Organization [facility] Address [address] [place] [address] Care Team Providers Care Gluer And Wedger Name Role Phone Katlyn Puente MD Primary Care Provider [phone] Source Comments [facility],non-owned Affiliates and Associated Physician Practices is amultiple site organization consisting of ambulatory clinics and hospital sitesin [place], [place], [place] and [place]. This disclosure is being madepursuant to the Care Everywhere program and may not contain all information available regarding this patient. Last updated 18.[facility] Allergies Active Allergy Reactions Criticality Noted Date Comments Penicillins Urticaria,Rash Low 05/29/2010 Medications * Be aware that medications may not be up to date on this document. Alwaysverify current medications with the patient. diphenhydrAMINE (BENADRYL) 25 MG capsuleIndicatio ns:took 2 capsule for itching Take 25 mg by mouth every 4 hours as needed. 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 Gender Identity Not on file Sexual Orientation Not on file Last Filed Vital Signs Vital Sign Reading Time Taken Comments Blood Pressure 90/64 10/23/2010 3:09 PM PLUNGER MACHINE OPERATOR Pulse 80 06/20/2010 4:50 PM CDT Temperature 36.7 C (98 F) 06/20/2010 4:24 PM CDT Respiratory Rate 20 06/20/2010 4:50 PM CDT Oxygen Saturation 99% 06/20/2010 3:55 PM CDT Inhaled Oxygen Concentration - - Weight 56.5 kg (124 lb 9.6 oz) 10/23/2010 3:09 P M PLUNGER MACHINE OPERATOR Height 173.7 cm (5' 8.39) 10/23/2010 3:09 PM CS T Body Mass Index 18.73 10/23/2010 3:09 PM PLUNGER MACHINE OPERATOR Plan of Treatment Health Maintenance Due Date Last Done Comments HIV SCREENING 2008 HEPATITIS C SCREENING 04/08/2011 DTAP/TDAP/TD VACCINES (1 - Tdap) 2012 HEPATITIS B VACCINE (1 of 3 - 19+ 3-dose series) 2012 HPV VACCINE (1 - 3-dose SCDM series) 2020 DEPRESSION SCREENING 10/13/2024 COVID-19 VACCINE (1 - 2023-2 5 season) 2025 INFLUENZA VACCINE (#1) 2025 ZOSTER VACCINE (1 of 2) 2043 HIB VACCINE Aged Out No longer eligi ble based on patient's age to complete this topic MENINGOCOCCAL (Group B) VACC INE SHARED DECISION-MAKING Aged Out No longer eligibl e based on patient's age to complete this topic MENINGOCOCCAL GROUPS A/C/Y/W VACCINE Aged Out No longer eligible b ased on patient's age to complete this topic PNEUMOCOCCAL VACCINE Aged Out No long er eligible based on patient's age to complete this topic Care Teams Gluer And Wedger Relationship Specialty Start Date End Date Katlyn Puente MD [address] [place] [address] Dr [address] [place] [phone] PCP - General 05/29/10
--- OUTSIDE RECORDS SUMMARY | 2025-06-21 17:37 | XMS_ITS | Clinical Summary ---
Author Organization [facility] Address [address] [place] [address] Phone Care Team Providers Care Spa Technician Name Role Phone Provider, None Primary Care [...] 8:03 PM CDT Height 177.8 cm (5' 10) 01/26/2023 8:03 PM CDT Body Mass Index 21.52 01/26/2023 8:03 PM CDT Plan of Treatment Not on file Insurance [employer] [facility] Care Teams Spa Technician Relationship Specialty Start Date End Date Provider, None [place] PCP - General 01/26/23
== END 2025-06-21 17:35 | disposition home or self-care (01) ==
PROVIDERS: PCP Nurse Practitioner Family; Visit Provider Nurse Practitioner Family
DX: M25.561 Pain in right knee (principal)
CPT/HCPCS: 73562

== ENCOUNTER 2025-08-03 06:58 | Outpatient (CLI) | payer OTHER, SELFPAY ==
--- NOTE | ~2025-08-03 | MR_ITS ---
EXAMINATION: MR knee RT wo con DATE: 08/03/2025 07:31 INDICATION: Right knee pain TECHNIQUE: Magnetic resonance imaging (MRI) of the right knee was performed without intravenous contrast. Sequences included coronal PD-weighted FSE, coronal PD-weighted FS FSE, sagittal T2-weighted FSE, sagittal PD-weighted FS FSE and axial PD weighted fat saturated FSE. COMPARISON: None. FINDINGS: Medial compartment: Medial meniscus is normal. Articular cartilage is normal. Lateral compartment: Lateral meniscus is normal. Articular cartilage is normal. Patellofemoral compartment: Articular cartilage is normal. Ligaments and tendons: Anterior and posterior cruciate ligaments are normal. The medial collateral ligament and fibular collateral ligament complex are normal. The extensor mechanism is normal. The visualized medial and lateral hamstring tendons as well as the iliotibial band are normal. Fluid: Physiologic amount of fluid in the joint space. No loose osteochondral bodies identified. Mild prepatellar bursitis overlying the inferior rim of the patella. 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 No fracture or other pathologic marrow replacing process. IMPRESSION: 1. Mild prepatellar bursitis. Otherwise unremarkable right knee MRI. Reviewed, dictated and finalized at location A.
== END 2025-08-03 06:59 | disposition home or self-care (01) ==
LOC: MICIMG 06:59
PROVIDERS: PCP Nurse Practitioner Family; Visit Provider Nurse Practitioner Family
DX: M70.41 Prepatellar bursitis, right knee (principal)
CPT/HCPCS: 73721